=== PATIENT | male | born 1960 | race Hispanic/Latino ===

== ENCOUNTER → 2018-11-14 | Outpatient (CLI) | payer BC | END | disposition home or self-care (01) | LOC: LAB 11:00 | PROVIDERS: ATTEND Internal Medicine | DX: R19.03 Right lower quadrant abdominal swelling, mass and lump (principal); R10.9 Unspecified abdominal pain | CPT/HCPCS: 36415; 82565; 84520 ==

== ENCOUNTER → 2018-11-19 | Outpatient (CLI) | payer BC ==
[~2018-11-19] MED LIST: IOHEXOL-350 75 ML VIAL IV ONE
== END | disposition home or self-care (01) ==
LOC: RAH 09:47
PROVIDERS: ATTEND Internal Medicine
DX: R19.03 Right lower quadrant abdominal swelling, mass and lump (principal); M51.37 Other intervertebral disc degeneration, lumbosacral region
CPT/HCPCS: 74177; Q9967

== ENCOUNTER → 2024-10-28 | Outpatient (CLI) | payer BC, MEDICARE ==
[~2024-10-28] MED LIST changes: +GADOTERATE MEGLUMINE 10 MMOL/20 ML VIAL IV ONE; -IOHEXOL-350 75 ML VIAL IV ONE
--- NOTE | 2024-10-28 10:18 | HMCIMG ---
MR BRAIN WWO CON HISTORY: Headaches COMPARISON: None TECHNIQUE: MRI of the brain was performed utilizing multiple pulse sequences in axial, coronal and sagittal planes. Patient was not given contrast through intravenous route. FINDINGS: The ventricles and extraventricular CSF spaces are nondilated for patient's age. There is no midline shift, mass effect or herniation. No subacute hemorrhage is seen. No MR evidence of acute infarct is seen in the diffusion weighted images. Cerebellar tonsils are in normal position. There are bilateral ethmoid and sphenoid sinus disease with mucoperiosteal thickening. No MR evidence of a mass lesion is seen in this noncontrast study. IMPRESSION: 1. No MR evidence of acute infarct is seen in the diffusion weighted images.
== END | disposition home or self-care (01) ==
LOC: RAH 08:46
PROVIDERS: ATTEND Internal Medicine
DX: G93.89 Other specified disorders of brain (principal); G44.89 Other headache syndrome
CPT/HCPCS: 70553; A9575

== ENCOUNTER → 2025-05-21 | Outpatient (CLI) | payer MEDICARE ==
--- NOTE | 2025-05-21 20:45 | HMCIMG ---
EXAM: MR Left Lower Extremity Without IV Contrast, Foot. CLINICAL HISTORY: M25.572 ??? Pain in left ankle and joints of left foot. TECHNIQUE: Multisequence, multiplanar MRI of the left foot without intravenous contrast. Series acquired: SAG T1 FSE ??? TR: 433.0 ??? TE: 6.7 ??? ET: 3.0 ??? Thk: 3.0 SAG T2 FS ??? TR: 4647.0 ??? TE: 67.0 ??? ET: 17.0 ??? Thk: 3.0 SAG FSE STIR ??? TR: 6237.0 ??? TE: 47.5 ??? ET: 7.0 ??? Thk: 3.0 COR PD FS ??? TR: 6054.0 ??? TE: 26.7 ??? ET: 8.0 ??? Thk: 3.0 COR T1 FSE ??? TR: 556.0 ??? TE: 7.7 ??? ET: 3.0 ??? Thk: 3.0 COR FSE STIR ??? TR: 04912.0 ??? TE: 47.8 ??? ET: 7.0 ??? Thk: 3.0 AX T2 FS ??? TR: 4659.0 ??? TE: 72.1 ??? ET: 16.0 ??? Thk: 3.0 AX FSE STIR ??? TR: 6900.0 ??? TE: 49.1 ??? ET: 9.0 ??? Thk: 3.0 CONTRAST: None. COMPARISON: None provided. FINDINGS Ligaments Medial collateral, lateral collateral, and Lisfranc ligament complex are intact. Tendons Achilles, flexor, extensor, and peroneal tendons appear intact. Bones Soft-tissue edema is present along the dorsal and plantar aspects of the foot, greatest dorsally. Subcutaneous edema involves the great toe and the lateral distal fifth metatarsal region without marrow signal abnormality to suggest osteomyelitis. Degenerative changes at the intertarsal and tarsometatarsal joints with associated subchondral marrow edema. Chronic fracture/erosive change with intra-articular loose bodies is present at the plantar???medial margin of the medial cuneiform and base of the first metatarsal. Muscles Normal signal and bulk. Fluid No joint effusion. Sinus Tarsi Unremarkable. Tarsal Tunnel Unremarkable. Plantar Fascia Normal; no evidence of plantar fascial fibromatosis. Cartilage Preserved. IMPRESSION : * No MRI evidence of plantar fascial fibromatosis or focal plantar fascia abnormality corresponding to the clinical concern. * Diffuse dorsal and plantar soft-tissue edema with focal subcutaneous edema at the great toe and distal fifth metatarsal region, without marrow signal abnormality to suggest osteomyelitis. * Intertarsal and tarsometatarsal degenerative arthropathy with subchondral marrow edema. * Chronic fracture/erosive change with small loose bodies along the plantar???medial medial cuneiform and base of the first metatarsal. /[place]
--- NOTE | 2025-05-22 08:39 | HMCIMG ---
EXAM: MR Cervical Spine Without Intravenous Contrast. CLINICAL HISTORY: M50.30 Other cervical disc degeneration, unspecified cervical region (Hx) / M50.30 Other cervical disc degeneration, unspecified cervical region TECHNIQUE: Magnetic resonance images of the cervical spine in multiple planes. CONTRAST: None. COMPARISON: None. FINDINGS: The imaged posterior fossa is unremarkable. The craniocervical junction is intact. No acute fracture. Normal lordotic curvature. Normal vertebral body height and marrow signal intensity. Multilevel disc desiccation and mild degenerative reduction in disc space at C3-C4, C4-C5, C5-C6, and C6-C7 levels. Prominent degenerative anterior osteophyte at the C4-C5 and C5-C6 level. Multilevel uncinate process hypertrophy from the C4-C7 level. Mild ligamentum flavum hypertrophy at the C4-C5 level with mild to moderate spinal canal stenosis. No abnormal signal involves the cervical cord. No extra-axial masses. The surrounding soft tissues are unremarkable. Level by level, disease is present as follows: C1-C2: No osteoarthritis. C2-C3: No disc bulge or herniation. No neural foraminal, lateral recess or spinal canal stenosis. C3-C4: Mild disc desiccation with degenerative reduction in disc space. Bilateral C4 uncinate process hypertrophy and facet arthropathy. Moderate to severe narrowing of the bilateral neural foramina. Abutment of the bilateral exiting C4 nerve root. C4-C5: Degenerative reduction in disc space with anterior osteophyte. Bilateral C5 uncinate process hypertrophy. Moderate to severe narrowing of the bilateral neural foramina. Abutment of bilateral exiting C5 nerve root. No spinal canal stenosis. C5-C6: Mild disc desiccation with degenerative anterior osteophyte. Minimal bilateral C6 uncinate process hypertrophy. No significant lateral recess, neural foraminal narrowing or nerve impingement. No evidence of spinal canal stenosis. C6-C7: Disc desiccation with degenerative reduction in disc space and minimal 3 mm disc bulge and bilateral C7 uncinate process hypertrophy. Mild narrowing of the left neural foramina. Abutment of the left exiting C7 nerve root. C7-T1: No disc bulge or herniation. No neural foraminal, lateral recess or spinal canal stenosis. IMPRESSION: No evidence of acute fracture or subluxation. Normal vertebral body height. Multilevel disc desiccation and mild degenerative reduction in disc space at C3-C4, C4-C5, C5-C6, and C6-C7 levels. Prominent degenerative anterior osteophyte at the C4-C5 and C5-C6 levels. Multilevel uncinate process hypertrophy from the C4-C7 level. Mild ligamentum flavum hypertrophy at the C4-C5 level with mild to moderate spinal canal stenosis. /[place]
== END | disposition home or self-care (01) ==
LOC: RAH 12:44
PROVIDERS: ATTEND Internal Medicine
DX: S93.402D Sprain of unspecified ligament of left ankle, subsequent encounter (principal); M72.2 Plantar fascial fibromatosis; M79.672 Pain in left foot; M25.572 Pain in left ankle and joints of left foot; M25.78 Osteophyte, vertebrae; M47.22 Other spondylosis with radiculopathy, cervical region; M50.11 Cervical disc disorder with radiculopathy, high cervical region; M50.121 Cervical disc disorder at C4-C5 level with radiculopathy; M50.122 Cervical disc disorder at C5-C6 level with radiculopathy; M50.123 Cervical disc disorder at C6-C7 level with radiculopathy; M48.02 Spinal stenosis, cervical region; M19.072 Primary osteoarthritis, left ankle and foot; R60.0 Localized edema; X58.XXXD Exposure to other specified factors, subsequent encounter
CPT/HCPCS: 72141; 73718